=== PATIENT | female | born 1960 | race Caucasian/White ===

== ENCOUNTER 2017-07-05 12:12 | Emergency (ER) | payer MEDICAID ==
[~2017-07-05] VITALS: Ht 160 cm; Wt 74.8 kg
[2017-07-05] MEDS ORDERED: HYDROCODONE/APAP 5-325MG TABLET PO ONE (13:15)
[2017-07-05 13:23] VITALS: BP 115/75
--- NOTE | 2017-07-05 13:24 | NUR ---
Patient discharged to home in stable conditon. Written and verbal after care instructions given as well RX, made aware to not drive Patient verbalizes understanding of instructions.
[2017-07-05] MEDS ORDERED: HYDROCODONE/APAP 5-325MG TABLET ONE (13:35)
== END 2017-07-05 13:25 | disposition home or self-care (01) ==
LOC: ER 12:12
DX: M54.40 Lumbago with sciatica, unspecified side (principal)
CPT/HCPCS: A4663